=== PATIENT | male | born 1965 | race Caucasian/White ===

== ENCOUNTER 2016-06-23 15:59 | Emergency (ER) | payer BC, OTHER ==
--- NOTE | 2016-06-23 16:39 | ER Document Report ---
ED Medical Screen (RME) - General Stated Complaint: RIGHT HAND PAIN Notes: this afternoon, was using an air powered nail gun had a nail go through the fat pad of the base of the right thumb 1/5 at rest, 2/5 in severity with movement denies difficulty with ROM, sensation has not had a tetanus within the past ten years - Related Data Allergies/Adverse Reactions: No Known Allergies Allergy (Unverified 07/07/12 00:01) Past Medical History - Past Medical History Cardiac Medical History: Denies: Hx Heart Attack, Hx Hypertension Pulmonary Medical History: Denies: Hx Asthma Neurological Medical History: Denies: Hx Cerebrovascular Accident, Hx Seizures GI Medical History: Denies: Hx Hepatitis, Hx Hiatal Hernia, Hx Ulcer Psychiatric Medical History: Reports: Hx Depression Infectious Medical History: Denies: Hx Hepatitis Past Surgical History: Reports: Hx Cardiac Catheterization, Hx Herniorrhaphy, Hx Open Heart Surgery - HEART CATHERIZATION RIGHT VENTRICULAR DYSPLASIA, Hx Orthopedic Surgery - left hand. Denies: Hx Pacemaker - Immunizations Hx Diphtheria, Pertussis, Tetanus Vaccination: Yes
[2016-06-23 16:40] VITALS: BP 134/91
[2016-06-23] MEDS ORDERED: DIPH/PERTUSS(ACELL)/TETANUS VAC/PF 0.5 ML SYR (>=10YO) IM ONE (16:40)
--- NOTE | 2016-06-23 17:38 | ER Document Report ---
ED General - General Chief Complaint: Puncture Wound Stated Complaint: RIGHT HAND PAIN Mode of Arrival: Ambulatory Information source: Patient TRAVEL OUTSIDE OF THE [place] IN LAST 30 DAYS: No - HPI Onset: Just prior to arrival - Related Data Allergies/Adverse Reactions: No Known Allergies Allergy (Verified 06/23/16 16:37) Past Medical History - General Information source: Patient - Social History Smoking Status: Never Smoker Chew tobacco use (# tins/day): No Frequency of alcohol use: Occasional Drug Abuse: None Family History: None Patient has suicidal ideation: No Patient has homicidal ideation: No - Past Medical History Cardiac Medical History: Denies: Hx Heart Attack, Hx Hypertension Pulmonary Medical History: Denies: Hx Asthma Neurological Medical History: Denies: Hx Cerebrovascular Accident, Hx Seizures Renal/ Medical History: Denies: Hx Peritoneal Dialysis GI Medical History: Denies: Hx Hepatitis, Hx Hiatal Hernia, Hx Ulcer Psychiatric Medical History: Reports: Hx Depression Infectious Medical History: Denies: Hx Hepatitis Past Surgical History: Reports: Hx Cardiac Catheterization, Hx Herniorrhaphy, Hx Open Heart Surgery - HEART CATHERIZATION RIGHT VENTRICULAR DYSPLASIA, Hx Orthopedic Surgery - left hand. Denies: Hx Pacemaker - Immunizations Hx Diphtheria, Pertussis, Tetanus Vaccination: Yes Review of Systems - Review of Systems Constitutional: No symptoms reported EENT: No symptoms reported Cardiovascular: No symptoms reported Respiratory: No symptoms reported Gastrointestinal: No symptoms reported Genitourinary: No symptoms reported Male Genitourinary: No symptoms reported Musculoskeletal: Other - This 51-year-old male presenting to the emergency room today after putting in nail from a framing nail gun through his right proximal and medial thumb she was able to pull the nail out prior to arrival Skin: No symptoms reported Hematologic/Lymphatic: No symptoms reported Neurological/Psychological: No symptoms reported Physical Exam - Vital signs Vitals: Temp Pulse Resp BP Pulse Ox 98.0 F 70 16 134/91 H 96 06/23/16 16:37 06/23/16 16:37 06/23/16 16:37 06/23/16 16:37 06/23/16 16:37 Interpretation: Normal - General General appearance: Appears well, Alert - HEENT Head: Normocephalic, Atraumatic Eyes: Normal Pupils: PERRL - Respiratory Respiratory status: No respiratory distress Chest status: Nontender Breath sounds: Normal Chest palpation: Normal - Cardiovascular Rhythm: Regular Heart sounds: Normal auscultation Murmur: No - Abdominal Inspection: Normal Distension: No distension Bowel sounds: Normal Tenderness: Nontender Organomegaly: No organomegaly - Back Back: Normal, Nontender - Extremities General upper extremity: Normal inspection, Nontender, Normal color, Normal ROM , Normal temperature General lower extremity: Normal inspection, Nontender, Normal color, Normal ROM , Normal temperature, Normal weight bearing. No: Caitlin's sign Hand: Normal, Tender, No evidence of FB, Other - Patient had a nail through the soft tissue is proximal and medial thumb prior to arrival he does have good range of motion of the first to the fifth fourth second and third digits and is able to perform hitchhiking sign. - Neurological Neuro grossly intact: Yes Cognition: Normal Orientation: AAOx4 [place] Coma Scale Eye Opening: Spontaneous [place] Coma Scale Verbal: Oriented Myrna Coma Scale Motor: Obeys Commands [place] Coma Scale Total: 15 Speech: Normal Motor strength normal: LUE, RUE, LLE, RLE Sensory: Normal - Psychological Associated symptoms: Normal affect, Normal mood - Skin Skin Temperature: Warm Skin Moisture: Dry Skin Color: Normal Course - Vital Signs Vital signs: Temp Pulse Resp BP Pulse Ox 98.0 F 70 16 134/91 H 96 06/23/16 16:37 06/23/16 16:37 06/23/16 16:37 06/23/16 16:37 06/23/16 16:37 Discharge - Discharge Clinical Impression: Foreign body of right thumb Disposition: HOME, SELF-CARE Instructions: Foreign Body ([facility]) Additional Instructions: Warm soaks 4-5 times a day. Follow-up with private doctor in 1 to 2 days for final radiology readings please return to the emergency room for any change worsening condition. Follow up with private M.D. for all other routine health care needs. Prescriptions: Sulfamethoxazole/Trimethoprim [Bactrim 400-80 mg Tablet] 1 each PO Q12 #20 tablet
== END 2016-06-23 17:47 | disposition home or self-care (01) ==
LOC: ER 15:59
DX: S60.351A Superficial foreign body of right thumb, initial encounter (principal); M79.641 Pain in right hand; X58.XXXA Exposure to other specified factors, initial encounter
CPT/HCPCS: 90471; 90715; 99283